=== PATIENT | male | born 1955 | race Native Hawaiian/Other Pacific Islander ===

== ENCOUNTER 2017-01-01 13:31 | Outpatient (CLI) | payer BC ==
[~2017-01-01 13:31] MED LIST: MEDROL DOSEPAK4 MG OR; TRIAMCINOLON0.5 % TOP
== END 2017-01-01 19:32 | disposition home or self-care (01) ==
LOC: RAD 13:31
DX: M25.512 Pain in left shoulder (principal)

== ENCOUNTER 2018-04-08 12:48 | Outpatient (CLI) | payer BC | END 2018-04-08 19:18 | disposition home or self-care (01) | LOC: RAD 12:48 | DX: M54.5 Low back pain (principal) ==

== ENCOUNTER 2020-06-29 09:10 | Outpatient (CLI) | payer BC | END 2020-06-29 21:00 | disposition home or self-care (01) | LOC: US 09:10 | PROVIDERS: ATTEND Optometrist | DX: H53.122 Transient visual loss, left eye (principal) ==

== ENCOUNTER 2020-07-09 04:12 | Outpatient (CLI) | payer BC ==
[2020-07-09 04:49] LABS: PLATELET COUNT 218 K/uL (142-355)
[2020-07-09 05:17] LABS: POTASSIUM 4.2 mmol/L (3.6-5.2)
== END 2020-07-09 21:43 | disposition home or self-care (01) ==
LOC: LABW 04:12
PROVIDERS: ATTEND Internal Medicine
DX: I10 Essential (primary) hypertension (principal); G45.9 Transient cerebral ischemic attack, unspecified
CPT/HCPCS: 36415; 80053; 80061; 81000; 84439; 84443; 85027; 85379

== ENCOUNTER 2020-07-22 08:28 | Outpatient (CLI) | payer BC | END 2020-07-22 23:16 | disposition home or self-care (01) | LOC: MRI 08:28 | PROVIDERS: ATTEND Internal Medicine | DX: G45.9 Transient cerebral ischemic attack, unspecified (principal) ==

== ENCOUNTER 2021-08-10 13:59 | Outpatient (CLI) | payer OTHER, MEDICARE | END 2021-08-10 19:15 | disposition home or self-care (01) | LOC: RAD 13:59 | PROVIDERS: ATTEND Physician Assistant | DX: M54.59 Other low back pain (principal) ==

== ENCOUNTER 2021-09-23 11:31 | Outpatient (CLI) | payer OTHER, MEDICARE ==
[2021-09-23 11:41] LABS: PLATELET COUNT 164 K/uL (142-355)
[2021-09-23 12:01] LABS: POTASSIUM 4.3 mmol/L (3.6-5.2)
== END 2021-09-23 20:53 | disposition home or self-care (01) ==
LOC: LAB 11:31
PROVIDERS: ATTEND Internal Medicine
DX: I10 Essential (primary) hypertension (principal); Z12.5 Encounter for screening for malignant neoplasm of prostate; N40.0 Benign prostatic hyperplasia without lower urinary tract symptoms; Z79.899 Other long term (current) drug therapy
CPT/HCPCS: 80053; 80061; 81002; 85027

== ENCOUNTER 2021-09-27 11:07 | Outpatient (CLI) | payer OTHER, MEDICARE | END 2021-09-27 18:56 | disposition home or self-care (01) | LOC: LAB 11:07 | PROVIDERS: ATTEND Internal Medicine | DX: I10 Essential (primary) hypertension (principal); N40.0 Benign prostatic hyperplasia without lower urinary tract symptoms; Z12.5 Encounter for screening for malignant neoplasm of prostate; Z79.899 Other long term (current) drug therapy | CPT/HCPCS: 83036; 84153; 84439; 84443 ==